=== PATIENT | female | born 1990 | race Caucasian/White ===

== ENCOUNTER 2018-10-22 09:19 | Emergency (ER) | payer BC, OTHER ==
[~2018-10-22] VITALS: Ht 160 cm; Wt 72.3 kg
[2018-10-22 09:20] VITALS: BP 146/96
[2018-10-22] MEDS ORDERED: MONT10TA2 (09:26)
[2018-10-22] MEDS ORDERED: APRITAB (09:26)
[2018-10-22] MEDS ORDERED: SYMB80INH (09:26)
[2018-10-22] MEDS ORDERED: LEVOTAB10 (09:26)
--- NOTE | 2018-10-22 10:07 | REP ---
LEFT HAND, FOUR VIEWS: There is no evidence of an acute fracture, dislocation or intrinsic bone disease. IMPRESSION: No fracture or dislocation. Electronically Signed by Patrick Morgan MD 10/22/2018 05:13 P
== END 2018-10-22 10:41 | disposition home or self-care (01) ==
LOC: M ED 09:19
DX: M25.641 Stiffness of right hand, not elsewhere classified (principal); M79.642 Pain in left hand; Z79.899 Other long term (current) drug therapy; Z88.0 Allergy status to penicillin

== ENCOUNTER → 2023-03-11 | Outpatient (REF) | payer OTHER ==
[~2023-03-11] MED LIST: APRITAB; LEVOTAB10; MONT10TA97; SYMB80INH
== END ==
LOC: M PLALAB 12:45
PROVIDERS: ATTEND Advanced Practice Midwife
DX: Z12.4 Encounter for screening for malignant neoplasm of cervix (principal)

== ENCOUNTER → 2024-09-01 | Outpatient (REF) | payer OTHER, BC | LOC: M SFHCWAGY 13:12 | PROVIDERS: ATTEND Advanced Practice Midwife | DX: Z12.4 Encounter for screening for malignant neoplasm of cervix (principal) ==